=== PATIENT | male | born 1965 | race Caucasian/White ===

== ENCOUNTER 2017-06-03 21:39 | Emergency (ER) | payer BC ==
[2017-06-03 21:44] VITALS: BP 125/76; PULSE 75; TEMP 98; BMI 29.7
--- NOTE | 2017-06-03 21:50 | PDOC ---
History of Present Illness - General Chief Complaint: Urinary Catheter Problem Stated Complaint: "I NEED MY DOMINGUEZ IRRIGATED" Time Seen by Provider: 06/03/17 21:43 History Source: Patient Exam Limitations: No Limitations - History of Present Illness Initial Comments: 06/03/17 21:47 This is a 51-year-old male who had a prostatectomy on approximately 10 days ago who was due to have his Dominguez removed tomorrow. Patient now comes in saying his Dominguez is blocked and his urologist sent him in to have it irrigated. Patient otherwise denies any fevers, chills, nausea, back pain, flank pain or any other complaints. Nurse irrigated the Dominguez prior to my evaluation and there was a small amount of blood clots that were irrigated and the Dominguez was flowing without difficulty on my evaluation. PAST MEDICAL HISTORY: no significant history PAST SURGICAL HISTORY: no significant history FAMILY HISTORY: no pertinant history SOCIAL HISTORY: Pt lives with family and is employed. MEDICATIONS: reviewed ALLERGIES: As per nursing notes Review of Systems General: No fevers or chills, no weakness, no weight loss HEENT: No change in vision. No sore throat,. No ear pain CardioVascular: No chest pain or shortness of breath Respiratory:No cough, or wheezing. Gastrointestinal: no nausea, vomitting, diarrhea or constipation, No rectal bleeding Genitourinary: Dominguez blocked as per history of present illness, prostatectomy Musculoskeletal: No joint or muscle pain or swelling Neurologic: No headache, vertigo, dizziness or loss of consciousness Psychiatric: nor depression Skin: No rashes or easy bruising Endocrine: no increased thirst or abnormal weight change Allergic: no skin or latex allergy All other systems reviewed and normal GENERAL: The patient is awake, alert, and fully oriented, in no acute distress. HEAD: Normal with no signs of trauma. EYES: Pupils equal, round and reactive to light, extraocular movements intact, sclera anicteric, conjunctiva clear. : There is a Dominguez in place with good drainage and clear urine. EXTREMITIES: Normal range of motion, no edema. NEUROLOGICAL: Normal speech, normal gait. PSYCH: Normal mood, normal affect. SKIN: Warm, Dry, normal turgor, no rashes or lesions noted. Assessment and plan: This is a 51-year-old male who came in with a small clot blocking his Dominguez which was readily irrigated and his Dominguez is not draining without difficulty. Patient Dominguez placed a leg bag he feels much better and is discharged home to follow-up with his urologist tomorrow. Past History - Past Medical History Allergies/Adverse Reactions: Allergies Allergy/AdvReac Type Severity Reaction Status Date / Time No Known Allergies Allergy Unverified 06/03/17 21:44 Home Medications: Ambulatory Orders Febuxostat [Uloric -] 40 mg PO DAILY 06/03/17 Other medical history: PROSTATE CA - Psycho/Social/Smoking Cessation Hx Anxiety: No Suicidal Ideation: No Smoking History: Unknown if ever smoked Have you smoked in the past 12 months: No Number of Cigarettes Smoked Daily: 0 Information on smoking cessation initiated: No Hx Alcohol Use: No Drug/Substance Use Hx: No Substance Use Type: None *Physical Exam - Vital Signs Last Vital Signs Temp Pulse Resp BP Pulse Ox 98 F 75 14 125/76 100 06/03/17 21:41 06/03/17 21:41 06/03/17 21:41 06/03/17 21:41 06/03/17 21:41 *DC/Admit/Observation/Transfer Diagnosis at time of Disposition: Problem with Dominguez catheter Qualifiers: Encounter type: initial encounter Qualified Code(s): T83.9XXA - Unspecified complication of genitourinary prosthetic device, implant and graft, initial encounter - Discharge Dispostion Disposition: HOME Condition at time of disposition: Good Admit: No - Patient Instructions Additional Instructions: Return to the emergency department immediately with ANY new, persistent or worsening symptoms. Continue any medications as previously prescribed by your physician. You should follow up with your primary doctor as soon as possible regarding today's emergency department visit. . Please make sure your doctor reviews the results of your emergency evaluation. Thank you for coming to the Emergency Department today for your care. It was a pleasure to see you today. Please note that your evaluation is INCOMPLETE until you follow-up with your doctor.
== END 2017-06-03 21:57 | disposition home or self-care (01) ==
LOC: FER 21:39
DX: T83.9XXA Unspecified complication of genitourinary prosthetic device, implant and graft, initial encounter (principal); Z98.890 Other specified postprocedural states
CPT/HCPCS: 99282-25

== ENCOUNTER 2021-06-06 17:10 | Emergency (ER) | payer BC ==
[2021-06-06 17:29] VITALS: BP 130/89; PULSE 88; TEMP 98.2
[2021-06-06 18:49] LABS: EOS % 0.8 % (0-4.5); HEMATOCRIT 45.1 % (35.4-49); HEMOGLOBIN 15.3 GM/dl (11.7-16.9); LYMPH % 17.7 % (8-40); MCHC 33.9 g/dl (32.0-35.9); MEAN CELL VOLUME 85.6 fl (80-96); MEAN PLT VOLUME 10.2 fl (7.5-11.1); MONO % 8.3 % (3.8-10.2); NEUT % 72.2 % (42.8-82.8); PLATELET COUNT 161 10^3/uL (134-434); RBC 5.26 M/mm3 (4.00-5.60); RDW 12.3 % (11.9-15.9)
[2021-06-06 18:56] LABS: ALBUMIN 4.5 g/dl (3.4-5.0); BILIRUBIN,TOTAL 0.7 mg/dl (0.2-1); CALCIUM 9.5 mg/dl (8.5-10); CREATININE 0.8 mg/dl (0.55-1.3)
== END 2021-06-06 20:55 | disposition home or self-care (01) ==
LOC: FER 17:10
DX: K42.9 Umbilical hernia without obstruction or gangrene (principal)
CPT/HCPCS: 36415; 74177-TC; 80053; 81003; 81015; 83690; 85025; 87086; 99284-25; Q9967

== ENCOUNTER 2022-05-22 04:33 | Day surgery (SDC) | payer BC ==
[2022-05-16 10:27] VITALS: BMI 29.9
[2022-05-22 13:46] VITALS: TEMP 98.4
[2022-05-22 14:24] VITALS: BP 123/83; PULSE 84
== END 2022-05-22 14:21 | disposition home or self-care (01) ==
LOC: JRADIR 04:33
PROVIDERS: ATTEND Surgery
PROC: 0KB Muscles, Excision (ICD-10-PCS; principal; 2022-05-22)
DX: C49.8 Malignant neoplasm of overlapping sites of connective and soft tissue (principal)
CPT/HCPCS: 20206; 76098-TC-FY; 77012-TC; 87899; 88305-TC; 88341-TC; 88342-TC